=== PATIENT | male | born 1960 | race Caucasian/White ===

== ENCOUNTER 2019-05-07 15:48 | Emergency (ER) | payer MEDICAID ==
[~2019-05-07] VITALS: Ht 177.8 cm; Wt 79.4 kg
[2019-05-07] MEDS ORDERED: morphine 4 MG/ML inj SYRINge IV ONE (16:15)
[2019-05-07] MEDS ORDERED: ondansetron/PF 4mg/2ml inj IV ONE (16:15)
[2019-05-07] MEDS ORDERED: TETanus/Pertussis (Acell)/Diphther VAC/PF (Tdap-Adult) 0.5ml syringe IM ONE (16:15)
[2019-05-07] MEDS ORDERED: bacitracin 15gm ointment TP ONE (16:15)
[2019-05-07 16:44] LABS: BASOPHILS # (AUTO) 0.1 X10'3 (0-0.2); EOSINOPHILS # (AUTO) 0.3 X10'3 (0-0.9); EOSINOPHILS % (AUTO) 2.3 % (0-6); HEMATOCRIT 45.1 % (42.0-52.0); HEMOGLOBIN 15.1 g/dl (14.0-17.9); LYMPHOCYTES # (AUTO) 1.5 X10'3 (1.1-4.8); LYMPHOCYTES % (AUTO) 12.5 % (21-51); MEAN CORPUSCULAR HEMOGLOBIN 30.5 PG (27.0-31.0); MEAN CORPUSCULAR HGB CONC 33.5 g/dL (33.0-36.5); MEAN CORPUSCULAR VOLUME 91.1 FL (78-98); MEAN PLATELET VOLUME 8.2 FL (7.4-10.4); MONOCYTES # (AUTO) 0.7 X10'3 (0-0.9); MONOCYTES % (AUTO) 5.4 % (2-12); NEUTROPHILS # (AUTO) 9.5 X10'3 (1.8-7.7); NEUTROPHILS % (AUTO) 78.8 % (42-75); PLATELET COUNT 357 X10'3 (140-440); RED BLOOD COUNT 4.95 X10'6 (4.70-6.10); RED CELL DISTRIBUTION WIDTH 14.4 % (11.5-14.5); WHITE BLOOD COUNT 12.1 X10'3 (4.5-11.0)
[2019-05-07] MEDS ORDERED: ketamine 50 mg/ml 10ml vial IV ONE ×2 (16:45→17:15)
[2019-05-07 17:01] LABS: ALANINE AMINOTRANSFERASE 25 U/L (12-78); ALBUMIN 3.4 G/DL (3.4-5.0); ALBUMIN/GLOBULIN RATIO 0.8 (1.1-1.5); ALKALINE PHOSPHATASE 71 IU/L (46-116); ANION GAP 8 (8-16); ASPARTATE AMINO TRANSFERASE 24 U/L (10-37); BILIRUBIN,TOTAL 0.3 MG/DL (0.1-1.0); BLOOD UREA NITROGEN 15 MG/DL (7-18); BUN/CREATININE RATIO 11.3 (5.4-32.0); CALCIUM 8.9 MG/DL (8.5-10.1); CHLORIDE 105 MMOL/L (99-107); CREATININE 1.33 MG/DL (0.60-1.10); GLUCOSE 123 MG/DL (70-104); POTASSIUM 3.5 MMOL/L (3.5-5.1); SODIUM 141 MMOL/L (135-145); TOTAL PROTEIN 7.7 G/DL (6.4-8.2); eGFR 55 ML/MIN
[2019-05-07 17:02] LABS: ETHANOL < 0.010 GM/DL (0.0-0.010); TROPONIN I < 0.04 NG/ML (0.0-0.05)
[2019-05-07] MEDS ORDERED: ketamine 10mg/ml 20ml inj IV ONE (18:05)
--- NOTE | 2019-05-07 18:22 | NUR ---
Jared blake in ED - 05/07/19 at 1823 by YOSELIN DURING MODERATED SEDATION DR CUNHA ORDERS A SECOND DOSE OF KETAMINE 30 MG IV. ADMIN ORDERED.
--- NOTE | 2019-05-07 18:27 | NUR ---
DURING THE MODERATE SEDATION PROCEDURE, DR CUNHA ORDERS A SECOND DOSE OF KETAMINE 30 MG IV. ADMIN AT 1754.
--- NOTE | 2019-05-07 18:43 | NUR ---
PRIMARY NURSE CONCERNED ABOUT PATIENT POST SURGICAL TACHYCARDIA. PATIENT THEN ACKNOWLEGED METH USE TODAY. PATIENT IS OTHERWISE BACK TO BASELINE.
--- NOTE | 2019-05-07 18:46 | NUR ---
MD CUNHA WAS MADE AWARE OF THE CAUSE OF TACHYCARDIA. PATIENT CLEARED FOR DISCHARGE
[2019-05-07 18:49] VITALS: BP 153/111
== END 2019-05-07 18:52 ==
LOC: ER 15:49
DX: S30.811A Abrasion of abdominal wall, initial encounter (principal); S50.312A Abrasion of left elbow, initial encounter; S50.812A Abrasion of left forearm, initial encounter; S80.211A Abrasion, right knee, initial encounter; R00.0 Tachycardia, unspecified; V19.88XA Pedal cyclist (driver) (passenger) injured in other specified transport accidents, initial encounter; Y93.55 Activity, bike riding; Y92.413 State road as the place of occurrence of the external cause; Y99.9 Unspecified external cause status
CPT/HCPCS: 36415; 71045; 71250; 73080; 80053; 80320; 84484; 85025; 85610; 86885; 86900; 86901; 93005; 96374; 96375; 99152; 99285; J2270; J2405; 94760; 99284